=== PATIENT | male | born 1940 | race Caucasian/White ===

== ENCOUNTER 2019-10-30 13:28 | Emergency (ER) | payer MEDICARE, OTHER ==
--- NOTE | 2019-10-30 13:44 | EDM.PDOC ---
ED HPI GENERAL MEDICAL PROBLEM - General Chief Complaint: General Stated Complaint: BLOOD PRESSURE MEDICATION refill Time Seen by Provider: 10/30/19 13:30 Source of Information: Reports: Patient History Limitations: Reports: No Limitations - History of Present Illness INITIAL COMMENTS - FREE TEXT/NARRATIVE: Patient comes into the emergency department with concerns regarding medication refill. Patient has a longstanding history of hypertension and he has been on amlodipine for greater than 20 years 5 mg daily. [facility] and was to [facility] the [facility] here however it has not been delivered yet and he is out of the medication. His states that they did go to the pharmacy however they were unable to fill the medication. [facility] with [facility]. The local pharmacy requested that the patient be seen in the emergency department to get a prescription/script to have his medications refilled. Patient has no concerns or complaints and states he has been relatively healthy. He has no medication side effects or medication interactions. He denies any other COVID-19 symptoms. He states that he is been relatively healthy and feels well just does not want to go through the weekend without the medication especially the unknown timeframe of when his medication will be delivered.He states he follows regularly with the [facility]. According to the prescription bottle he does have refills till January 2020. Onset: Today Improves with: Reports: None Worsens with: Reports: None Associated Symptoms: Reports: No Other Symptoms - Related Data Allergies Allergy/AdvReac Type Severity Reaction Status Date / Time No Known Allergies Allergy Verified 11/14/15 09:47 Home Meds: Home Meds Aspirin [Halfprin] 1 tab PO DAILY 11/11/15 [History] Simvastatin [Zocor] 10 mg PO BEDTIME 11/11/15 [History] amLODIPine [Norvasc] 0.5 tab PO DAILY 11/11/15 [History] amLODIPine Besylate [Amlodipine Besylate] 5 mg PO DAILY #7 tablet 10/30/19 [Rx] Past Medical History Cardiovascular History: Reports: Hypertension, Other (See Below) Other Cardiovascular History: bilateral BBB, dyslipidermia Gastrointestinal History: Reports: Colon Polyp Genitourinary History: Reports: Prostate Disorder Musculoskeletal History: Reports: Osteoarthritis Endocrine/Metabolic History: Reports: Osteoporosis - Past Surgical History Musculoskeletal Surgical History: Reports: Hip Replacement, Other (See Below) ED ROS GENERAL - Review of Systems Review Of Systems: Comprehensive ROS is negative, except as noted in HPI. Constitutional: Reports: No Symptoms HEENT: Reports: No Symptoms Respiratory: Reports: No Symptoms Cardiovascular: Reports: No Symptoms Endocrine: Reports: No Symptoms GI/Abdominal: Reports: No Symptoms Musculoskeletal: Reports: No Symptoms Skin: Reports: No Symptoms Neurological: Reports: No Symptoms Psychiatric: Reports: No Symptoms ED EXAM, GENERAL - Physical Exam Exam: See Below Exam Limited By: No Limitations General Appearance: Alert, WD/WN, No Apparent Distress Throat/Mouth: Normal Inspection, Normal Lips, Normal Teeth, Normal Gums, Normal Oropharynx, Normal Voice, No Airway Compromise Head: Atraumatic, Normocephalic Neck: Normal Inspection, Supple, Non-Tender, Full Range of Motion Respiratory/Chest: No Respiratory Distress, Lungs Clear, Normal Breath Sounds, No Accessory Muscle Use, Chest Non-Tender Extremities: Normal Inspection, Normal Range of Motion, Non-Tender, Normal Capillary Refill, No Pedal Edema Neurological: Alert, Oriented, CN II-XII Intact, Normal Cognition, Normal Gait, Normal Reflexes, No Motor/Sensory Deficits Psychiatric: Normal Affect, Normal Mood Skin Exam: Warm, Dry, Intact, Normal Color, No Rash Departure - Departure Time of Disposition: 13:40 Disposition: Home, Self-Care 01 Condition: Good Clinical Impression: Medication refill, HTN (hypertension) - Discharge Information *PRESCRIPTION DRUG MONITORING PROGRAM REVIEWED*: Not Applicable *COPY OF PRESCRIPTION DRUG MONITORING REPORT IN PATIENT [place]: Not Applicable Prescriptions: amLODIPine Besylate [Amlodipine Besylate] 5 mg PO DAILY #7 tablet Instructions: Amlodipine tablets Forms: ED Department Discharge Additional Instructions: 1. Medication refill of Amlodipine 10m-take 1/2 tab daily. Filled 7 tabs. 2. Continue all at home medications 4. Activity and diet as tolerated 5. Can take over the counter Tylenol or ibuprofen for any pain or discomfort 6. Follow up with PCP if symptoms continue, return, or progress 7. Call with any questions or concerns - Assessment/Plan Assessment:: 1. medication refill request 2. History HTN Plan: 1. Medication refill of Amlodipine 10mg take 1/2 tab daily. Script filled with 7 tabs to equal 14 days 2. Patient and nursing staff was updated regarding the plan of care 3. Education provided the patient regarding activity, diet, rest, [id number] medication modalities, and follow-up care was provided 4. Patient and family are agreeable to the above plan of care 5. All questions and concerns were addressed with the patient and family prior to discharge
[2019-10-30 13:53] VITALS: BP 151/78; PULSE 78
== END 2019-10-30 13:44 | disposition home or self-care (01) ==
LOC: VM.ED 13:28
DX: I10 Essential (primary) hypertension (principal); Z76.0 Encounter for issue of repeat prescription; E78.5 Hyperlipidemia, unspecified; Z79.82 Long term (current) use of aspirin; Z79.899 Other long term (current) drug therapy
CPT/HCPCS: 99281; 99284-GF

== ENCOUNTER 2022-10-19 20:11 | Inpatient (IN) | payer OTHER, MEDICARE | END 2022-10-25 17:04 | disposition swing bed (61) | DRG 690 | LOC: VM.ED 20:11 → VM.MS 21:56 | PROVIDERS: ADMIT Family Medicine ==